=== PATIENT | male | born 1940 | race Caucasian/White ===

== ENCOUNTER 2017-07-08 13:33 | Emergency (ER) | payer OTHER ==
[~2017-07-08] VITALS: Ht 162.6 cm; Wt 75.1 kg
[2017-07-08 14:23] LABS: MCH 29.8 PG (29.0-34.0); MCV 87.8 FL (86-99); MEAN PLAT.VOLUME 9.7 uM^3 (9.0-12.4); PLATELET COUNT 288 K/uL (156-360); RBC DIS.WIDTH-CV 12.8 % (11.8-14.6)
[2017-07-08 14:31] LABS: PROTHROMBIN TIME 11.5 SEC (10.2-12.9)
[2017-07-08 14:33] LABS: CHLORIDE 104 mEq/L (99-109); POTASSIUM 3.7 mEq/L (3.7-5.4); PTT 32.1 SEC (25-37); SODIUM 138 mEq/L (136-147)
[2017-07-08 14:35] LABS: GLUCOSE 103 mg/dL (70-99)
[2017-07-08 14:37] LABS: ANION GAP 10 MEQ/L (2-14)
[2017-07-08 14:39] LABS: GFR ESTIMATE (CALCULATED) > 59 mL/min/
[2017-07-08 14:40] LABS: UREA NITROGEN (BUN) 14 mg/dL (9-23)
[2017-07-08 16:09] VITALS: BP 150/93
[2017-07-08] MEDS ORDERED: KEFLEX500 MG PO (16:12)
[2017-07-09] MEDS ORDERED: AMLODIPINE BESYL5 MG PO (20:21)
[2017-07-09] MEDS ORDERED: DITROPAN5 MG PO (20:22)
[2017-07-09] MEDS ORDERED: SIMVASTATIN80 MG PO (20:23)
== END 2017-07-08 16:18 | disposition home or self-care (01) ==
LOC: EME 13:33
PROVIDERS: Physician Assistant
PROC: 0W3Q7ZZ Control Bleeding in Respiratory Tract, Via Natural or Artificial Opening (ICD-10-PCS; principal; 2017-07-08)
DX: R04.0 Epistaxis (principal); Z79.82 Long term (current) use of aspirin
CPT/HCPCS: 80048; 85027; 85610; 85730; 99281; 99284

== ENCOUNTER 2017-07-09 20:11 | Emergency (ER) | payer OTHER ==
[~2017-07-09] VITALS: Ht 162.6 cm; Wt 73.4 kg
[~2017-07-09 20:11] MED LIST: KEFLEX500 MG PO
[2017-07-09] MEDS ORDERED: AMLODIPINE BESYL5 MG PO (20:21)
[2017-07-09] MEDS ORDERED: DITROPAN5 MG PO (20:22)
[2017-07-09] MEDS ORDERED: SIMVASTATIN80 MG PO (20:23)
[2017-07-09 21:13] LABS: HEMATOCRIT 42.6 % (38.0-50.0); MCH 30.1 PG (29.0-34.0); MCV 88.4 FL (86-99); MEAN PLAT.VOLUME 9.7 uM^3 (9.0-12.4); PLATELET COUNT 321 K/uL (156-360); RBC DIS.WIDTH-CV 12.8 % (11.8-14.6); RBC DIS.WIDTH-SD 41.1 % (39-53); RED BLOOD COUNT 4.82 M/uL (4.00-5.50); WHITE BLOOD COUNT 12.6 K/uL (4.1-10.2)
[2017-07-09 21:27] LABS: CHLORIDE 104 mEq/L (99-109); POTASSIUM 3.6 mEq/L (3.7-5.4); SODIUM 137 mEq/L (136-147)
[2017-07-09 21:29] LABS: GLUCOSE 115 mg/dL (70-99)
[2017-07-09 21:30] LABS: ANION GAP 10 MEQ/L (2-14)
[2017-07-09 21:32] LABS: GFR ESTIMATE (CALCULATED) > 59 mL/min/
[2017-07-09 21:33] LABS: UREA NITROGEN (BUN) 15 mg/dL (9-23)
[2017-07-09 21:41] LABS: TROP-I INTERPRETATION NEGATIVE; TROPONIN-I < 0.01 ng/mL (0.0-0.30)
[2017-07-10 00:55] VITALS: BP 145/81
== END 2017-07-10 01:00 | disposition home or self-care (01) ==
LOC: EME → EDBD 20:11 → EME 07-10 01:00
PROVIDERS: Emergency Medicine
DX: I10 Essential (primary) hypertension (principal); R04.0 Epistaxis
CPT/HCPCS: 71010; 80048; 84484; 85027; 93005; 99281; 99285